=== PATIENT | female | born 1995 | race Asian ===

== ENCOUNTER 2018-01-24 12:34 | Emergency (ER) | payer OTHER ==
[~2018-01-24] VITALS: Ht 161 cm; Wt 40.9 kg
[2018-01-24 12:37] VITALS: BP 124/90; TEMP 97.8
[2018-01-24 13:35] VITALS: PULSE 100
== END 2018-01-24 13:35 | disposition home or self-care (01) ==
LOC: COL.ER 12:34 → EDBD 12:36 → COL.ER 13:35
DX: N63.13 Unspecified lump in the right breast, lower outer quadrant (principal)

== ENCOUNTER → 2018-01-28 | Outpatient (CLI) | payer OTHER | LOC: MC.RAD 10:30 | DX: N63.11 Unspecified lump in the right breast, upper outer quadrant (principal) ==

== ENCOUNTER → 2018-06-21 | Outpatient (CLI) | payer OTHER | LOC: MC.RAD 13:47 | DX: N63.11 Unspecified lump in the right breast, upper outer quadrant (principal) ==